=== PATIENT | male | born 1940 | race Caucasian/White ===

== ENCOUNTER 2018-05-07 07:53 | Emergency (ER) | payer MEDICARE, MEDICAID ==
[~2018-05-07] VITALS: Ht 167.6 cm; Wt 59.1 kg
[~2018-05-07 07:53] MED LIST: HYDR-4383 PO
[2018-05-07 09:32] VITALS: BP 150/61
[2018-05-07] MEDS ORDERED: LIDOcaine 1.5% w/epinephrine 1:200,000 5ml ampul IJ ONE (09:50)
[2018-05-07] MEDS ORDERED: LIDOcaine 1% w/epiNEPHrine 1:200,000 30ml vial IJ ONE (09:50)
== END 2018-05-07 10:38 | disposition left against medical advice (07) ==
LOC: ER 07:54
DX: L02.01 Cutaneous abscess of face (principal); M19.90 Unspecified osteoarthritis, unspecified site; Z79.82 Long term (current) use of aspirin
CPT/HCPCS: 99281; J3490; 99282; 99283

== ENCOUNTER 2018-06-21 06:33 | Emergency (ER) | payer MEDICARE, MEDICAID ==
[~2018-06-21] VITALS: Ht 167.6 cm; Wt 62.9 kg
[2018-06-21 06:44] VITALS: BP 166/66
== END 2018-06-21 08:05 | disposition home or self-care (01) ==
LOC: ER 06:34
DX: L02.01 Cutaneous abscess of face (principal); M19.90 Unspecified osteoarthritis, unspecified site; Z79.899 Other long term (current) drug therapy
CPT/HCPCS: 99282; 99283

== ENCOUNTER 2018-07-25 14:45 | Emergency (ER) | payer MEDICARE, MEDICAID ==
[~2018-07-25] VITALS: Ht 167.6 cm; Wt 61.0 kg
[2018-07-25 14:56] VITALS: BP 136/68
== END 2018-07-25 15:36 | disposition home or self-care (01) ==
LOC: ER 14:46
DX: L08.9 Local infection of the skin and subcutaneous tissue, unspecified (principal); L53.8 Other specified erythematous conditions; M19.90 Unspecified osteoarthritis, unspecified site
CPT/HCPCS: 99282

== ENCOUNTER 2018-10-14 19:56 | Emergency (ER) | payer MEDICARE, MEDICAID ==
[~2018-10-14] VITALS: Ht 167.6 cm; Wt 61.3 kg
[2018-10-14 19:58] VITALS: BP 171/68
== END 2018-10-14 20:48 | disposition home or self-care (01) ==
LOC: ER 19:57
DX: L08.89 Other specified local infections of the skin and subcutaneous tissue (principal); M19.90 Unspecified osteoarthritis, unspecified site; Z85.828 Personal history of other malignant neoplasm of skin
CPT/HCPCS: 99282